=== PATIENT | female | born 1975 | race Two or more races ===

== ENCOUNTER 2017-02-05 08:37 | Day surgery (SDC) | payer OTHER ==
[2017-02-05] MEDS ORDERED: NALOXONE HCL INJ/PF 0.4 MG/1 ML SDV ONE ×3 (08:46→08:47)
[2017-02-05] MEDS ORDERED: ONDANSETRON HCL INJ/PF 4 MG/2 ML SDV ONE ×2 (08:46→08:48)
[2017-02-05] MEDS ORDERED: PROMETHAZINE HCL INJ 25 MG/1 ML VIAL ONE ×2 (08:46→08:48)
[2017-02-05] MEDS ORDERED: GLYCOPYRROLATE INJ 0.4 MG/2 ML VIAL ONE (08:48)
[2017-02-05] MEDS ORDERED: EPINEPHRINE INJ 1 MG/10 ML DISP.SYRIN ONE (08:49)
[2017-02-05] MEDS ORDERED: FLUMAZENIL INJ 0.5 MG/5 ML VIAL IV ONE (08:49)
[2017-02-05] MEDS: MIDAZOLAM 2 MG/2 ML INJ ONE ×2 (09:07→09:13)
[2017-02-05] MEDS: FENTANYL CITRATE INJ/PF 100 MCG/2 ML AMPUL ONE ×3 (09:09→09:15)
[2017-02-05 10:15] LABS: ABSOLUTE EOSINOPHILS # (AUTO) 0.2 10^3/uL (0.0-0.6); ABSOLUTE LYMPHOCYTES (AUTO) 1.2 10^3/uL (0.5-4.7); ABSOLUTE MONOCYTES (AUTO) 0.3 10^3/uL (0.1-1.4); ABSOLUTE NEUT (AUTO) 3.9 10^3/uL (1.7-8.2); BASOPHILS % (AUTO) 0.8 % (0-2); EOSINOPHILS % (AUTO) 3.7 % (0-6); HEMATOCRIT 29.5 % (36.0-47.0); HEMOGLOBIN 9.3 g/dL (12.0-15.5); HGB HCT DIFFERENCE -1.6; LYMPHOCYTES % (AUTO) 21.1 % (13-45); MEAN CORPUSCULAR HEMOGLOBIN 21.2 pg (27.0-33.4); MEAN CORPUSCULAR HGB CONC 31.5 g/dL (32.0-36.0); MEAN CORPUSCULAR VOLUME 67 fl (80-97); MONOCYTES % (AUTO) 5.4 % (3-13); RED CELL DISTRIBUTION WIDTH 19.1 % (11.5-14.0); WHITE BLOOD COUNT 5.7 10^3/uL (4.0-10.5)
[2017-02-05 10:32] LABS: ALANINE AMINOTRANSFERASE 26 U/L (9-52); ALBUMIN 3.6 g/dL (3.5-5.0); ALKALINE PHOSPHATASE 48 U/L (38-126); ANION GAP 10 (5-19); ASPARTATE AMINO TRANSFERASE 14 U/L (14-36); BILIRUBIN,TOTAL 0.4 mg/dL (0.2-1.3); BLOOD UREA NITROGEN 14 mg/dL (7-20); CALCIUM 7.9 mg/dL (8.4-10.2); CARBON DIOXIDE 20 mmol/L (22-30); CHLORIDE 111 mmol/L (98-107); CREATININE RESULT 0.38 mg/dL (0.52-1.25); GLUCOSE 175 mg/dL (75-110); IRON 14.4 ug/dL (37-170); POTASSIUM 3.7 mmol/L (3.6-5.0); TOTAL PROTEIN 5.9 g/dL (6.3-8.2); TRIGLYCERIDES 40 mg/dL (<150)
[2017-02-05 10:53] VITALS: BP 120/65
[2017-02-05 10:54] LABS: ERYTHROCYTE SEDIMENTATION RATE 12 mm/hr (0-20)
[2017-02-05 11:06] LABS: FERRITIN 4.67 ng/mL (6.2-137.0)
[2017-02-05 11:09] LABS: AMYLASE < 30 U/L (30-110)
--- NOTE | 2017-02-06 11:31 | DISCHARGE SUMMARY E ---
Discharge Summary NAME: PHILIP PASCUAL : 1975 AGE: 41Y ADMITTED: 02/05/2017 DISCHARGED: 02/05/2017 HISTORY: Patient is 41. Presented with abdominal pain. She does have history of migraines. She did have cholecystectomy, . FINDINGS: Upper scope today shows no ulcers. Mild gastritis. She uses Motrin for migraines. DISCHARGE PLAN: 1. Awaiting lab studies. 2. Hold Motrin. 3. Awaiting CBC, amylase, lipase. 4. Consider elective colonoscopy pending lab studies. DICTATING PHYSICIAN: ANA MARIA SURESH M.D. [id number] PHY#: [id number] ID: [id number] JOB#: [id number] ACCT: [id number] cc:[facility] ANA MARIA LEE M.D. >
--- NOTE | 2017-02-06 11:49 | OPERATIVE REPORT E ---
Operative Report NAME: PHILIP PASCUAL : 1975 AGE: 41Y DATE OF SURGERY: 02/05/2017 ROOM: PREOPERATIVE DIAGNOSIS: Abdominal pain. POSTOPERATIVE DIAGNOSES: 1. Gastritis, mild. 2. Esophagitis, mild. 3. Duodenitis, mild. OPERATION: 1. Esophagoscopy. 2. Gastroscopy. 3. Duodenoscopy. SURGEON: ANA MARIA SURESH M.D. TISSUE REMOVED OR ALTERED: Gastric biopsy - H. pylori. ANESTHESIA: Versed 3, fentanyl 100. DESCRIPTION: Baby scope passed under guided vision, no difficulties: ESOPHAGOSCOPY (JUNCTION AT 35): Mild esophagitis; no hernia, no ulcers. GASTROSCOPY: Mild/moderate gastritis. Biopsy obtained - H. pylori. DUODENOSCOPY: Mild erythema; no ulcers; mild duodenitis. Descending duodenum normal. DISCHARGE PLAN: 1. Hold Motrin, nonsteroidal. 2. Continue Nexium. 3. Awaiting biopsy results, lab studies. 4. Patient to see us in the office in the next few days. DICTATING PHYSICIAN: ANA MARIA SURESH M.D. [id number] [id number] PHY#: [id number] ID: [id number] JOB#: [id number] ACCT: [id number] cc:[facility] ANA MARIA LEE M.D. >
== END 2017-02-05 10:54 | disposition home or self-care (01) ==
LOC: END 08:37
PROVIDERS: ATTEND Specialist
PROC: 0DB68ZX Excision of Stomach, Via Natural or Artificial Opening Endoscopic, Diagnostic (ICD-10-PCS; principal; 2017-02-05 09:00)
DX: K29.50 Unspecified chronic gastritis without bleeding (principal); K20.9 Esophagitis, unspecified; K29.80 Duodenitis without bleeding; G43.909 Migraine, unspecified, not intractable, without status migrainosus; Z79.1 Long term (current) use of non-steroidal anti-inflammatories (NSAID)
CPT/HCPCS: 43239; 36415; 82150; 82728; 83540; 83690; 84478; 85025; 85652; 80053; 88342 ×2; 88305 ×2; J2250; J3010; J2405; J0171; J2310; J2550; J3490

== ENCOUNTER 2017-03-14 09:03 | Day surgery (SDC) | payer OTHER ==
[~2017-03-14 09:03] MED LIST: FLUMAZENIL INJ 0.5 MG/5 ML VIAL IV ONE; GLUCAGON,HUMAN RECOMB 1 MG INJ ONE; GLYCOPYRROLATE INJ 0.4 MG/2 ML VIAL ONE; LIDOCAINE 2% JELLY 30 ML TUBE ONE; MIDAZOLAM 2 MG/2 ML INJ ONE; NALOXONE HCL INJ/PF 0.4 MG/1 ML SDV ONE; ONDANSETRON HCL INJ/PF 4 MG/2 ML SDV ONE
[2017-03-14] MEDS: MIDAZOLAM 2 MG/2 ML INJ ONE ×4 (09:17→09:29)
[2017-03-14] MEDS: FENTANYL CITRATE INJ/PF 100 MCG/2 ML AMPUL ONE ×2 (09:19→09:25)
[2017-03-14] MEDS ORDERED: SIMETHICONE 80 MG TAB.CHEW ONE (10:27)
[2017-03-14 11:03] VITALS: BP 106/76
[2017-03-14 11:31] LABS: ABSOLUTE BASOPHILS # (AUTO) 0.1 10^3/uL (0.0-0.2); ABSOLUTE EOSINOPHILS # (AUTO) 0.2 10^3/uL (0.0-0.6); ABSOLUTE LYMPHOCYTES (AUTO) 1.5 10^3/uL (0.5-4.7); ABSOLUTE MONOCYTES (AUTO) 0.4 10^3/uL (0.1-1.4); ABSOLUTE NEUT (AUTO) 4.5 10^3/uL (1.7-8.2); BASOPHILS % (AUTO) 0.9 % (0-2); EOSINOPHILS % (AUTO) 2.4 % (0-6); HEMATOCRIT 33.1 % (36.0-47.0); HEMOGLOBIN 10.4 g/dL (12.0-15.5); HGB HCT DIFFERENCE -1.9; LYMPHOCYTES % (AUTO) 22.6 % (13-45); MEAN CORPUSCULAR HEMOGLOBIN 20.9 pg (27.0-33.4); MEAN CORPUSCULAR HGB CONC 31.4 g/dL (32.0-36.0); MEAN CORPUSCULAR VOLUME 67 fl (80-97); MONOCYTES % (AUTO) 6.7 % (3-13); RED BLOOD COUNT 4.97 10^6/uL (3.72-5.28); RED CELL DISTRIBUTION WIDTH 17.7 % (11.5-14.0); SEGMENTED NEUTROPHILS % (AUTO) 67.4 % (42-78); WHITE BLOOD COUNT 6.7 10^3/uL (4.0-10.5)
[2017-03-14 12:06] LABS: ALANINE AMINOTRANSFERASE 29 U/L (9-52); ALBUMIN 3.9 g/dL (3.5-5.0); ALKALINE PHOSPHATASE 60 U/L (38-126); AMYLASE 38 U/L (30-110); ANION GAP 13 (5-19); ASPARTATE AMINO TRANSFERASE 22 U/L (14-36); BILIRUBIN,DIRECT 0.3 mg/dL (0.0-0.4); BILIRUBIN,TOTAL 0.8 mg/dL (0.2-1.3); BLOOD UREA NITROGEN 14 mg/dL (7-20); CALCIUM 8.4 mg/dL (8.4-10.2); CARBON DIOXIDE 21 mmol/L (22-30); CHLORIDE 105 mmol/L (98-107); CREATININE RESULT 0.51 mg/dL (0.52-1.25); GLUCOSE 93 mg/dL (75-110); LIPASE 115.8 U/L (23-300); POTASSIUM 3.9 mmol/L (3.6-5.0); SODIUM 139.2 mmol/L (137-145); TOTAL PROTEIN 6.9 g/dL (6.3-8.2)
--- NOTE | 2017-03-16 18:23 | OPERATIVE REPORT E ---
Operative Report NAME: PHILIP PASCUAL : 1975 AGE: 41Y DATE OF SURGERY: 03/14/2017 ROOM: PREOPERATIVE DIAGNOSIS: Abdominal pain. POSTOPERATIVE DIAGNOSIS: Diverticulosis, sigmoid descending colon. PROCEDURE: Colonoscopy. SURGEON: ANA MARIA SURESH M.D. ANESTHESIA: Versed 5 and fentanyl 100. TISSUE REMOVED OR ALTERED: None. PROCEDURE: Rectal exam shows mild external hemorrhoids. Sigmoid descending colon normal. Descending colon diverticulosis. Transverse colon normal. Ascending colon normal. Cecum normal. Scope withdrawn from cecum, ascending, transverse, descending, sigmoid all the way to the rectum. CONCLUSION: Diverticulosis left colon. No evidence of polyps. Mild external hemorrhoids. PLAN: Assurance. Soft diet. Lab studies. DICTATING PHYSICIAN: ANA MARIA SURESH M.D. [id number] [id number] PHY#: [id number] ID: [id number] JOB#: [id number] ACCT: [id number] cc:[facility] ANA MARIA SURESH M.D. >
--- NOTE | 2017-03-16 18:23 | DISCHARGE SUMMARY E ---
Discharge Summary NAME: PHILIP PASCUAL : 1975 AGE: 41Y ADMITTED: 03/14/2017 DISCHARGED: 03/14/2017 PREOPERATIVE DIAGNOSES: 1. Abdominal pain. 2. Change bowel habits. POSTOPERATIVE DIAGNOSES: 1. Diverticulosis in the left colon. 2. Mild external hemorrhoids. PLAN: Consider followup colonoscopy after 10 years. DICTATING PHYSICIAN: ANA MARIA SURESH M.D. [id number] [id number] PHY#: [id number] ID: [id number] JOB#: [id number] ACCT: [id number] cc:[facility] ANA MARIA HARRISON M.D. >
--- NOTE | 2017-03-16 18:23 | DISCHARGE SUMMARY E ---
Discharge Summary NAME: PHILIP PASCUAL : 1975 AGE: 41Y ADMITTED: 03/14/2017 DISCHARGED: 03/14/2017 HISTORY: A 41-year-old female who presents with abdominal pain, change in bowel habits. Today's colonoscopy shows left colon diverticulosis with no diverticulitis, mild external hemorrhoids. DISCHARGE PLAN: We will do lab studies, CBC, CA-125 regarding ovarian. We will do chem profile and check her chemistry and will follow her as an outpatient. Soft diet, hold aspirin and nonsteroidals for a few days. Awaiting lab studies. Followup office visit in the next few days. DICTATING PHYSICIAN: ANA MARIA SURESH M.D. [id number] [id number] Y#: [id number] ID: [id number] JOB#: [id number] ACCT: [id number] cc:[facility] ANA MARIA SURESH M.D. >
== END 2017-03-14 12:00 | disposition home or self-care (01) ==
LOC: END 09:03
PROVIDERS: ATTEND Specialist
PROC: 0DJD8ZZ Inspection of Lower Intestinal Tract, Via Natural or Artificial Opening Endoscopic (ICD-10-PCS; principal; 2017-03-14 09:00)
DX: K57.30 Diverticulosis of large intestine without perforation or abscess without bleeding (principal); K64.4 Residual hemorrhoidal skin tags; Z79.899 Other long term (current) drug therapy; Z91.040 Latex allergy status
CPT/HCPCS: 45378; 36415; 86304; 82150; 83690; 85025; 80053; J2250; J3010; J1610; J2405; J2310; J3490